=== PATIENT | male | born 1995 | race Caucasian/White ===

== ENCOUNTER 2019-10-10 21:28 | Emergency (ER) | payer OTHER ==
[~2019-10-10] VITALS: Ht 185.4 cm; Wt 108.9 kg
[2019-10-10 21:35] VITALS: Ht 185.4 cm; Wt 108.9 kg
[2019-10-11 00:50] VITALS: BP 130/77
== END 2019-10-11 00:50 | disposition home or self-care (01) ==
LOC: ED 21:28
DX: S82.51XA Displaced fracture of medial malleolus of right tibia, initial encounter for closed fracture (principal); Z88.1 Allergy status to other antibiotic agents; V29.49XA Motorcycle driver injured in collision with other motor vehicles in traffic accident, initial encounter; Y93.I9 Activity, other involving external motion; Y92.488 Other paved roadways as the place of occurrence of the external cause; Y99.8 Other external cause status
CPT/HCPCS: J2270; J2405; J3010; J3490; Q0092